=== PATIENT | male | born 1945 | race Two or more races ===

== ENCOUNTER 2018-12-09 11:01 | Inpatient (IN) | payer BC, OTHER ==
[2018-12-09] MEDS ORDERED: ONDANSETRON HCL/PF 4 MG/2 ML VIAL IVP ONE (12:00)
[2018-12-09] MEDS ORDERED: IV NS 0.9% 500 ML BAG IV ONE ×2 (12:00→20:30)
[2018-12-09] MEDS ORDERED: MORPHINE SULFATE INJ 2 MG/ML DISP.SYRIN IV ONE (12:00)
[2018-12-09] MEDS ORDERED: MORPHINE SULFATE INJ 4 MG/ML DISP.SYRIN ONE (12:04)
[2018-12-09] MEDS ORDERED: ONDANSETRON HCL/PF 4 MG/2 ML VIAL ONE ×2 (12:04→13:58)
[2018-12-09] MEDS ORDERED: TRAZ-214 PO (13:24)
[2018-12-09] MEDS ORDERED: OMEP40CA37 PO (13:24)
[2018-12-09] MEDS ORDERED: NAPR220C15 PO (13:24)
[2018-12-09] MEDS ORDERED: SIMV40TA5 PO (13:24)
[2018-12-09] MEDS ORDERED: LISI-603 PO (13:24)
[2018-12-09] MEDS ORDERED: CITA10TA9 PO (13:24)
[2018-12-09] MEDS ORDERED: HYDROMORPHONE 1 MG/1 ML DISP.SYRIN ONE ×5 (13:58→23:40)
[2018-12-09] MEDS ORDERED: HYDROMORPHONE 1 MG/1 ML DISP.SYRIN IV ONE ×5 (14:00→23:30)
[2018-12-09] MEDS ORDERED: ONDANSETRON HCL/PF 4 MG/2 ML VIAL IV ONE (14:00)
[2018-12-10] MEDS ORDERED: HYDROCODONE/APAP 5/325MG 1 EACH TABLET PO PRN (01:00)
[2018-12-10] MEDS ORDERED: ZOLPIDEM TARTRATE 5 MG TABLET PO PRN (01:00)
[2018-12-10] MEDS ORDERED: ACETAMINOPHEN 325 MG TABLET PO PRN (01:00)
[2018-12-10] MEDS ORDERED: MAG HYDROX/AL HYDROX/SIMETH 30 ML UDC PO PRN (01:00)
[2018-12-10] MEDS ORDERED: Z GUARD REMEDY 2 OZ OINT TP PRN (01:00)
[2018-12-10] MEDS ORDERED: ONDANSETRON HCL/PF 4 MG/2 ML VIAL IVP PRN (01:00)
[2018-12-10] MEDS ORDERED: MAGNESIUM HYDROXIDE 30 ML UDC PO PRN (01:00)
[2018-12-10] MEDS ORDERED: IBUPROFEN 600 MG TABLET PO ONE (01:30)
[2018-12-10] MEDS ORDERED: ACETAMINOPHEN 325 MG TABLET PO ONE (01:30)
[2018-12-10] MEDS: MORPHINE SULFATE INJ 2 MG/ML DISP.SYRIN IV PRN ×3 (01:46→10:16)
[2018-12-10] MEDS ORDERED: TRAZODONE 50 MG TABLET ONE (01:48)
[2018-12-10] MEDS ORDERED: NAPROXEN 250 MG TABLET PO PRN (07:30)
[2018-12-10] MEDS ORDERED: PANTOPRAZOLE 40 MG TABLET.DR PO SCH (07:30)
[2018-12-10] MEDS: Magnesium 1GM/D5W 100ML PREMIX 100 ML IV SCH ×2 (08:40→09:59)
[2018-12-10] MEDS ORDERED: LISINOPRIL (20MG) 20 MG TABLET PO SCH (09:00)
[2018-12-10] MEDS ORDERED: ENOXAPARIN SODIUM 40 MG/0.4 ML DISP.SYRIN SQ SCH (09:00)
[2018-12-10] MEDS ORDERED: CITALOPRAM HYDROBROMIDE 10 MG TABLET PO SCH (09:00)
[2018-12-10] MEDS ORDERED: TRAZODONE 50 MG TABLET PO SCH (22:00)
[2018-12-10] MEDS ORDERED: SIMVASTATIN 40 MG TABLET PO SCH (22:00)
== END 2018-12-10 12:10 | disposition short-term general hospital (02) | DRG 536 ==
DX: S72.141A Displaced intertrochanteric fracture of right femur, initial encounter for closed fracture (principal); W18.30XA Fall on same level, unspecified, initial encounter; Y92.89 Other specified places as the place of occurrence of the external cause; I10 Essential (primary) hypertension; E78.5 Hyperlipidemia, unspecified; F32.9 Major depressive disorder, single episode, unspecified; Z95.3 Presence of xenogenic heart valve; E83.42 Hypomagnesemia